=== PATIENT | female | born 1955 | race African-American/Black ===

== ENCOUNTER 2017-05-26 13:43 | Emergency (ER) | payer OTHER ==
[2017-05-26] MEDS: predniSOLONE (3 MG/ML) CUP PO (16:11)
[2017-05-26] MEDS: ALBUTEROL/IPRATROPIUM (NEB) 3 ML AMP HHN (16:19)
== END 2017-05-26 17:07 | disposition home or self-care (01) ==
LOC: FTE 13:43
DX: J45.901 Unspecified asthma with (acute) exacerbation (principal); F17.210 Nicotine dependence, cigarettes, uncomplicated
CPT/HCPCS: 94664; 99284-25

== ENCOUNTER 2017-07-06 15:03 | Emergency (ER) | payer OTHER ==
[2017-07-06] MEDS: IPRATROPIUM (NEB) 0.5 MG/2.5 ML AMP NEB (18:58)
[2017-07-06] MEDS: ALBUTEROL 0.083% (NEB) 2.5 MG/3 ML AMP NEB (18:59)
[2017-07-06] MEDS: predniSONE 20 MG TAB PO (19:01)
[2017-07-06] MEDS: HYDROCODONE/APAP (5/325) TAB PO (19:50)
[2017-07-06] MEDS ORDERED: PROMETHAZINE/DM (CUP) PO (20:00)
== END 2017-07-06 20:05 | disposition home or self-care (01) ==
LOC: FTE 15:03
DX: J45.21 Mild intermittent asthma with (acute) exacerbation (principal); M54.42 Lumbago with sciatica, left side; F17.210 Nicotine dependence, cigarettes, uncomplicated
CPT/HCPCS: 94664; 99284-25